=== PATIENT | female | born 1945 | race Caucasian/White ===

== ENCOUNTER 2017-09-24 07:55 | Inpatient (IN) | payer OTHER ==
[~2017-09-24] VITALS: Ht 154.9 cm; Wt 54.2 kg
[2017-09-24 08:02] VITALS: Ht 154.9 cm; Wt 54.2 kg
[2017-09-24 11:07] LABS: microscopic required? NO
[2017-09-24 11:11] LABS: UA SPECIFIC GRAVITY <=1.005 (1.005-1.035); urine erythrocyte NEGATIVE (NEGATIVE)
[2017-09-24 11:32] LABS: BASOPHIL % 0.3 % (0-2); PLATELET COUNT 199 x10^3mcL (130-400); RED CELL DISTRIBUTION WIDTH 14.4 % (11.5-14.5)
[2017-09-24 11:45] LABS: ALBUMIN 4.3 g/dL (3.4-5.0); ALKALINE PHOSPHATASE 57 U/L (46-116); ALT/SGPT 27 U/L (14-59); AST/SGOT 26 U/L (15-37); BILIRUBIN TOTAL 0.52 mg/dL (0.20-1.00); CALCIUM 8.9 mg/dL (8.5-10.1); CARBON DIOXIDE 24.1 mmol/L (21-32); CHLORIDE SERUM 104 mmol/L (98-107); CREATININE SERUM 0.7 mg/dL (0.6-1.0); GFR1 > 60 mL/min; GLUCOSE SERUM 124 mg/dL (74-106); SODIUM SERUM 140 mmol/L (136-145); T4(THYROXINE) 10.4 ug/dL (4.7-13.3); TOTAL PROTEIN, SERUM 8.2 g/dL (6.4-8.2)
[2017-09-24] MEDS ORDERED: LOSARTAN POTASS50 M1 PO (12:00)
[2017-09-24] MEDS ORDERED: AMLODIPINE BESY10 M2 PO (12:01)
[2017-09-24 13:48] VITALS: BP 134/64
[2017-09-24 14:03] LABS: PHOSPHOROUS 3.5 mg/dL (2.5-4.9)
[2017-09-24 14:04] LABS: CHOLESTEROL/HDL RATIO 1.9
[2017-09-24 14:28] VITALS: BP 139/65
[2017-09-24 18:59] VITALS: BP 131/66
[2017-09-24 21:26] VITALS: BP 137/68
[2017-09-24 21:30] VITALS: BP 134/62
[2017-09-25 05:12] VITALS: BP 128/64
[2017-09-25 08:03] VITALS: BP 143/70
[2017-09-25 08:26] LABS: BASOPHIL % 0.2 % (0-2); PLATELET COUNT 192 x10^3mcL (130-400); RED CELL DISTRIBUTION WIDTH 14.5 % (11.5-14.5)
[2017-09-25 08:34] LABS: CALCIUM 8.9 mg/dL (8.5-10.1); CARBON DIOXIDE 21.9 mmol/L (21-32); CHLORIDE SERUM 103 mmol/L (98-107); CREATININE SERUM 0.7 mg/dL (0.6-1.0); GFR1 > 60 mL/min; GLUCOSE SERUM 135 mg/dL (74-106); MAGNESIUM 2.3 mg/dL (1.8-2.4); PHOSPHOROUS 4.4 mg/dL (2.5-4.9); POTASSIUM SERUM 3.3 mmol/L (3.5-5.1); SODIUM SERUM 139 mmol/L (136-145)
[2017-09-25 12:13] VITALS: BP 129/66
[2017-09-25 16:54] VITALS: BP 123/53
[2017-09-25 21:44] VITALS: BP 120/55
[2017-09-26 06:30] VITALS: BP 117/54
[2017-09-26 07:31] LABS: CALCIUM 8.9 mg/dL (8.5-10.1); CARBON DIOXIDE 25.4 mmol/L (21-32); CHLORIDE SERUM 103 mmol/L (98-107); CREATININE SERUM 0.7 mg/dL (0.6-1.0); GFR1 > 60 mL/min; GLUCOSE SERUM 89 mg/dL (74-106); MAGNESIUM 2.3 mg/dL (1.8-2.4); PHOSPHOROUS 3.5 mg/dL (2.5-4.9); POTASSIUM SERUM 3.3 mmol/L (3.5-5.1); SODIUM SERUM 140 mmol/L (136-145)
[2017-09-26 08:34] LABS: BASOPHIL % 0.4 % (0-2); PLATELET COUNT 229 x10^3mcL (130-400); RED CELL DISTRIBUTION WIDTH 14.7 % (11.5-14.5)
[2017-09-26] MEDS ORDERED: LEVAQUIN750 MG PO (09:55)
[2017-09-26] MEDS ORDERED: CLINDAMYCIN HC300 MG PO (09:56)
[2017-09-26] MEDS ORDERED: LAC PO (09:56)
[2017-09-26 11:01] VITALS: BP 126/69
[2017-09-26 11:33] VITALS: BP 126/69
== END 2017-09-26 12:51 | disposition home or self-care (01) | DRG 137 ==
LOC: ED 07:55 → DU 11:12
PROVIDERS: Emergency Medicine; Family Medicine Sports Medicine
DX: J69.0 Pneumonitis due to inhalation of food and vomit (principal); D64.9 Anemia, unspecified; I10 Essential (primary) hypertension; E87.6 Hypokalemia; R73.03 Prediabetes; E66.9 Obesity, unspecified; Z68.31 Body mass index [BMI] 31.0-31.9, adult; Z90.49 Acquired absence of other specified parts of digestive tract
CPT/HCPCS: 36600; 82962; 83880; 87804; J1956; J2930; J3480; J3490; J7030; J7040; J7050; J7613; J7620; J7644

== ENCOUNTER 2018-03-05 06:10 | Day surgery (SDC) | payer OTHER ==
[~2018-03-05] VITALS: Ht 154.9 cm; Wt 73.0 kg
[~2018-03-05 06:10] MED LIST: AMLODIPINE BESY10 M2 PO; CLINDAMYCIN HC300 MG PO; LAC PO; LEVAQUIN750 MG PO; LOSARTAN POTASS50 M1 PO
[2018-03-05 06:34] VITALS: BP 154/75
[2018-03-05 10:34] VITALS: BP 124/64
== END 2018-03-05 10:15 | disposition home or self-care (01) ==
LOC: GI 06:10 → OR 07:30 → GI 10:15
PROVIDERS: Internal Medicine Gastroenterology
PROC: 0DBN8ZZ Excision of Sigmoid Colon, Via Natural or Artificial Opening Endoscopic (ICD-10-PCS; principal; 2018-03-05 07:30)
DX: Z12.11 Encounter for screening for malignant neoplasm of colon (principal); D12.5 Benign neoplasm of sigmoid colon
CPT/HCPCS: 45378; J1200; J1610; J2250; J2310; J3010; J3490